=== PATIENT | female | born 1990 | race Caucasian/White ===

== ENCOUNTER 2020-05-22 19:30 | Inpatient (IN) | payer BC ==
[2020-05-22] MEDS ORDERED: HYDROcodone/Acetaminophen 5/325 mg Tablet PO PRN (21:35)
[2020-05-22] MEDS ORDERED: NS / Oxytocin 40 units/1000ml 1,000 ML IV PRN (21:35)
[2020-05-22] MEDS ORDERED: Butorphanol Tartrate 1 MG/ML VIAL SLOW IVP PRN (21:35)
[2020-05-22] MEDS ORDERED: Lidocaine 1% (PF) 30 ML VIAL SC PRN (21:35)
[2020-05-22] MEDS ORDERED: hydrALAZINE 20 MG/ML VIAL SLOW IVP PRN (21:35)
[2020-05-22] MEDS ORDERED: Misoprostol 200 MCG TAB PR PRN (21:35)
[2020-05-22] MEDS ORDERED: Diphenoxylate HCl/Atropine Tablet PO PRN (21:35)
[2020-05-22] MEDS ORDERED: Carboprost 250 MCG/ML AMP IM PRN (21:35)
[2020-05-22] MEDS ORDERED: Ondansetron PF 4 MG/2 ML Vial IVP PRN (21:35)
[2020-05-22] MEDS ORDERED: Methylergonovine 0.2 MG/ML VIAL IM PRN (21:35)
[2020-05-22] MEDS ORDERED: Acetaminophen 500 MG TAB PO PRN (21:35)
[2020-05-22] MEDS ORDERED: Zolpidem Tartrate 5 MG TAB PO PRN (21:35)
[2020-05-22] MEDS ORDERED: Ibuprofen 800 MG TAB PO PRN (21:35)
[2020-05-22] MEDS ORDERED: Promethazine HCl 25 MG/ML VIAL IM PRN (21:35)
[2020-05-22 22:01] VITALS: BMI 38.8
[2020-05-22] MEDS ORDERED: Misoprostol 100 MCG TAB ONE (22:36)
[2020-05-22] MEDS: Misoprostol 100 MCG TAB VAG SCH (23:01)
[2020-05-22 23:16] LABS: Hemoglobin 12.7 g/dL (12.0-15.5); Mean Corpuscular HGB CONC 33.7 g/dL (32.0-36.0); Mean Corpuscular Hemoglobin 28.9 pg (27.0-33.0); Mean Corpuscular Volume 85.9 fl (81.6-98.3); Mean Platelet Volume 11.3 fl (7.4-10.4); Platelet Count 195 10x3/uL (150-450); RBC Distribution Width 14.2 % (11.5-14.5); Red Blood Cell (RBC) Count 4.39 10x6/uL (3.90-5.03); White Blood Cell (WBC) Count 14.7 10x3/uL (3.5-10.5)
[2020-05-22 23:23] LABS: Hep B Surf Ag Non-Reactive S/CO (NonReactive)
[2020-05-22 23:24] LABS: Syphilis Antibody Nonreactive (Nonreactive); Syphilis Antibody Index 0.03 S/CO (<1.00 Non-Reactive)
[2020-05-23 02:51] LABS: Actual Bicarbonate (HCO3a) 15.5 mEq/L (22-28); Base Excess (BEa) -6.9 mEq/L (-2.0 to +3.0); CO2 Tension 23.6 mmHg (35.0-45.0); Calcium, Ionized (arterial) 1.22 mmol/L (1.12-1.30); Hemoglobin (Hb) 13.1 g/dL (12.0-16.0); O2 Tension (PaO2), arterial 86.6 mmHg (80.0-100.0); Potassium - ABG Lab 3.9 mmol/L (3.70-5.30); Puncture Site RRA; pH, Arterial 7.43 (7.35-7.45)
[2020-05-23 04:23] LABS: ALT (SGPT) 21 U/L (8-55); AST (SGOT) 20 U/L (5-34); Albumin 3.6 g/dL (3.5-5.0); Alkaline Phosphatase 159 U/L (40-110); Anion Gap 17 mmol/L (10-20); BUN (Urea Nitrogen) 9 mg/dL (7.0-18.7); Bilirubin, Total 0.2 mg/dL (0.2-1.2); Calc. Creatinine Clearance 164 mL/min (70-130); Calcium 9.1 mg/dL (7.8-10.44); Carbon Dioxide 19 mmol/L (22-29); Chloride 103 mmol/L (98-107); Globulin 2.4 g/dL (2.4-3.5); Glucose 169 mg/dL (70-105); Potassium 4.1 mmol/L (3.5-5.1); Sodium 135 mmol/L (136-145)
[2020-05-23] MEDS ORDERED: NS w/ Oxytocin 30 units 500 ML ONE (08:14)
[2020-05-23] MEDS ORDERED: Fentanyl 4 mcg/Bup 0.1% Cadd 100 ML ONE ×2 (12:43→21:06)
[2020-05-23] MEDS ORDERED: Ondansetron PF 4 MG/2 ML Vial IVP PRN (13:23)
[2020-05-23] MEDS ORDERED: diphenhydrAMINE 50 MG/ML VIAL IVP PRN (13:23)
[2020-05-23] MEDS ORDERED: Promethazine HCl 25 MG/ML VIAL IM PRN (13:23)
[2020-05-23] MEDS ORDERED: Lactated Ringer's 500 ML IV PRN (13:23)
[2020-05-23] MEDS ORDERED: Acetaminophen 325 MG TAB PO PRN (13:23)
[2020-05-23] MEDS ORDERED: Naloxone HCl 0.4 mg/ml Vial IVP PRN ×2 (13:23)
[2020-05-23] MEDS ORDERED: Fentanyl 4 mcg/Bupivacaine 0.1% Cassette 100 ML EPIDURAL SCH (13:30)
[2020-05-23] MEDS ORDERED: Communication Order-Pharmacy FS SCH (13:30)
[2020-05-23] MEDS ORDERED: NS w/ Oxytocin 30 units 500 ML IVPB PRN (13:39)
[2020-05-23] MEDS ORDERED: ePHEDrine Sulfate 50 MG/10 ML VIAL SLOW IVP PRN (13:42)
[2020-05-23 13:55] LABS: SARS-CoV-2 PCR by NAA Not Detected (NotDetected)
[2020-05-23] MEDS: Lactated Ringer's 1,000 ML IV SCH (20:53)
[2020-05-24] MEDS ORDERED: Lanolin Ointment 7 GM TUBE TOP PRN (02:16)
[2020-05-24] MEDS ORDERED: Zolpidem Tartrate 5 MG TAB PO PRN (02:16)
[2020-05-24] MEDS ORDERED: Bisacodyl 10 MG SUPP PR PRN (02:16)
[2020-05-24] MEDS ORDERED: Promethazine HCl 25 MG/ML VIAL IM PRN (02:16)
[2020-05-24] MEDS ORDERED: NS / Oxytocin 40 units/1000ml 1,000 ML IV SCH (02:16)
[2020-05-24] MEDS ORDERED: Benzocaine-Menthol 82.5 ML CAN TOP PRN (02:16)
[2020-05-24] MEDS ORDERED: Ondansetron PF 4 MG/2 ML Vial IVP PRN (02:16)
[2020-05-24] MEDS ORDERED: diphenhydrAMINE 25 MG CAP PO PRN (02:16)
[2020-05-24] MEDS ORDERED: Preparation H Ointment 28 GM TUBE PR PRN (02:16)
[2020-05-24] MEDS ORDERED: HYDROcodone/Acetaminophen 5/325 mg Tablet PO PRN ×2 (02:16)
[2020-05-24] MEDS ORDERED: hydrALAZINE 20 MG/ML VIAL SLOW IVP PRN (02:16)
[2020-05-24] MEDS ORDERED: Milk Of Magnesia 30 ML UDCUP PO PRN (02:16)
[2020-05-24] MEDS: Ibuprofen 800 MG TAB PO SCH ×3 (04:32→22:09)
[2020-05-24] MEDS: Misoprostol 100 MCG TAB VAG SCH ×3 (08:33→08:35)
[2020-05-24] MEDS: Lactated Ringer's 1,000 ML IV SCH (08:35)
[2020-05-24] MEDS ORDERED: Adacel (T-DAP) 0.5 ML SYRINGE IM ONE (09:00)
[2020-05-24] MEDS: Prenatal Vitamin 1 TAB PO SCH (09:10)
[2020-05-24] MEDS: Docusate Calcium (SURFAK) 240 MG CAP PO SCH ×2 (09:10→22:09)
[2020-05-24] MEDS ORDERED: Calcium Carbonate 500 MG ChewTAB PO PRN (20:26)
[2020-05-25] MEDS: Ibuprofen 800 MG TAB PO SCH ×2 (06:10→14:05)
[2020-05-25] MEDS: Docusate Calcium (SURFAK) 240 MG CAP PO SCH (09:03)
[2020-05-25] MEDS: Prenatal Vitamin 1 TAB PO SCH (09:03)
[2020-05-25 09:59] VITALS: BP 128/58; TEMP 98.2
== END 2020-05-25 16:05 | disposition home or self-care (01) | DRG 807 ==
LOC: CSHLD 21:15 → CSHPP 05-24 03:54
PROVIDERS: ADMIT Student in an Organized Health Care Education/Training Program; ATTEND Student in an Organized Health Care Education/Training Program
PROC: 3E0P7VZ Introduction of Hormone into Female Reproductive, Via Natural or Artificial Opening (ICD-10-PCS; 2020-05-23)
PROC: 0U7C7ZZ Dilation of Cervix, Via Natural or Artificial Opening (ICD-10-PCS; 2020-05-23)
PROC: 10907ZC Drainage of Amniotic Fluid, Therapeutic from Products of Conception, Via Natural or Artificial Opening (ICD-10-PCS; 2020-05-23)
PROC: 10E0XZZ Delivery of Products of Conception, External Approach (ICD-10-PCS; principal; 2020-05-24)
PROC: 0KQM0ZZ Repair Perineum Muscle, Open Approach (ICD-10-PCS; 2020-05-24)
DX: O10.92 Unspecified pre-existing hypertension complicating childbirth (principal); Z37.0 Single live birth; Z3A.39 39 weeks gestation of pregnancy; O76 Abnormality in fetal heart rate and rhythm complicating labor and delivery; Z20.822 Contact with and (suspected) exposure to COVID-19; O70.1 Second degree perineal laceration during delivery; Z88.0 Allergy status to penicillin; Z91.018 Allergy to other foods
CPT/HCPCS: 36415; 36600; 51702; 71045; 80053; 82805; 83880; 85027; 86780; 86850; 86900; 86901; 87340; 87635; 93005; 93010; 93970; J2405; J2590; U0003; U0005

== ENCOUNTER 2020-05-31 20:03 | Inpatient (IN) | payer BC ==
[2020-05-31 21:02] LABS: #Basophils 0.1 10x3/uL (0.0-0.2); #Eosinphils 0.2 10x3/uL (0.0-0.5); #Monocytes 1.3 10x3/uL (0.0-1.1); #Neutrophils 12.3 10x3/uL (1.5-8.4); %Basophils 0.4 % (0.0-2.0); %Eosinophils 1.1 % (0.0-6.0); %Lymphocytes 10.6 % (18.0-47.0); %Monocytes 7.9 % (0.0-10.0); %Neutrophils 76.3 % (40.0-75.0); Mean Corpuscular HGB CONC 33.5 g/dL (32.0-36.0); Mean Corpuscular Hemoglobin 28.7 pg (27.0-33.0); Mean Corpuscular Volume 85.7 fl (81.6-98.3); Mean Platelet Volume 10.2 fl (7.4-10.4); Platelet Count 344 10x3/uL (150-450); RBC Distribution Width 13.7 % (11.5-14.5); Red Blood Cell (RBC) Count 4.53 10x6/uL (3.90-5.03); White Blood Cell (WBC) Count 16.1 10x3/uL (3.5-10.5)
[2020-05-31] MEDS ORDERED: Acetaminophen 500 MG TAB ONE (21:05)
[2020-05-31 21:17] LABS: ALT (SGPT) 56 U/L (8-55); AST (SGOT) 29 U/L (5-34); Albumin 4.1 g/dL (3.5-5.0); Alkaline Phosphatase 91 U/L (40-110); Anion Gap 17 mmol/L (10-20); BUN (Urea Nitrogen) 14 mg/dL (7.0-18.7); Bilirubin, Total 0.3 mg/dL (0.2-1.2); Calc. Creatinine Clearance 0 mL/min (70-130); Calcium 9.2 mg/dL (7.8-10.44); Carbon Dioxide 19 mmol/L (22-29); Chloride 103 mmol/L (98-107); Globulin 3.4 g/dL (2.4-3.5); Glucose 81 mg/dL (70-105); Potassium 4.2 mmol/L (3.5-5.1); Protein, Total 7.5 g/dL (6.0-8.3); Sodium 135 mmol/L (136-145)
[2020-05-31 22:20] LABS: SARS-CoV-2 NAA Rapid Test Not Detected (NotDetected)
[2020-05-31 23:06] LABS: Bilirubin Neg (Negative); Blood, Urine 150 (Negative); Clarity Clear (Clear); Glucose, Urine (Dipstick) Normal (Negative); Ketone, Urine Negative (Negative); Leukocyte 100 (Negative); Nitrite Negative (Negative); Protein, Urine (Dipstick) Negative (Neg-Trace); Specific Gravity, Urine 1.005 (1.002-1.036); Urobilinogen Normal mg/dL (Less than 2)
[2020-05-31] MEDS ORDERED: Gentamicin 80 MG/100 ML BAG ONE (23:20)
[2020-05-31 23:21] LABS: Bacteria/HPF 2+ HPF (None Seen); Mucous/LPF Rare LPF (<2+); WBC/HPF 0-3 HPF (0-3)
[2020-06-01] MEDS: Gentamicin Sulfate 80 MG in Premix Bag 1 BAG IVPB SCH ×2 (01:18→01:22)
[2020-06-01] MEDS ORDERED: Bisacodyl 10 MG SUPP PR PRN (01:56)
[2020-06-01] MEDS ORDERED: Ondansetron PF 4 MG/2 ML Vial IVP PRN (01:56)
[2020-06-01] MEDS ORDERED: Milk Of Magnesia 30 ML UDCUP PO PRN (01:56)
[2020-06-01] MEDS ORDERED: Ibuprofen 800 MG TAB PO PRN (01:56)
[2020-06-01] MEDS ORDERED: diphenhydrAMINE 25 MG CAP PO PRN (01:56)
[2020-06-01 02:18] VITALS: BMI 38.8
[2020-06-01] MEDS ORDERED: Ampicillin 2 GM in Sodium Chloride 0.9% 100 ML IVPB SCH (04:00)
[2020-06-01] MEDS: Acetaminophen 325 MG TAB PO PRN ×2 (05:30→16:33)
[2020-06-01 06:14] LABS: #Basophils 0.1 10x3/uL (0.0-0.2); #Eosinphils 0.1 10x3/uL (0.0-0.5); #Monocytes 1.2 10x3/uL (0.0-1.1); #Neutrophils 10.2 10x3/uL (1.5-8.4); %Basophils 0.4 % (0.0-2.0); %Eosinophils 0.9 % (0.0-6.0); %Lymphocytes 14.8 % (18.0-47.0); %Monocytes 8.3 % (0.0-10.0); %Neutrophils 72.5 % (40.0-75.0); Hemoglobin 12.6 g/dL (12.0-15.5); Mean Corpuscular HGB CONC 32.3 g/dL (32.0-36.0); Mean Corpuscular Hemoglobin 28.3 pg (27.0-33.0); Mean Corpuscular Volume 87.6 fl (81.6-98.3); Mean Platelet Volume 9.9 fl (7.4-10.4); Platelet Count 319 10x3/uL (150-450); Red Blood Cell (RBC) Count 4.45 10x6/uL (3.90-5.03)
[2020-06-01] MEDS: Ampicillin 2 GM in Sodium Chloride 0.9% 100 ML IVPB SCH ×2 (08:33→14:13)
[2020-06-01] MEDS ORDERED: Docusate Calcium (SURFAK) 240 MG CAP PO SCH (09:00)
[2020-06-01] MEDS: Clindamycin/D5W 900 MG in Premix Bag 1 BAG IVPB SCH ×2 (09:11→16:26)
[2020-06-01] MEDS ORDERED: Sodium Chloride 0.9% 1,000 ML IV SCH (15:00)
[2020-06-01 16:28] VITALS: BP 135/75; TEMP 100.3
[2020-06-01] MEDS ORDERED: Mineral Oil ENEMA PR SCH (19:30)
== END 2020-06-01 20:30 | disposition home or self-care (01) | DRG 776 ==
LOC: CSHERS 20:03 → CSHPP 06-01 00:35
PROVIDERS: ADMIT Obstetrics & Gynecology; ATTEND Obstetrics & Gynecology
DX: O98.53 Other viral diseases complicating the puerperium (principal); N13.30 Unspecified hydronephrosis; Z20.822 Contact with and (suspected) exposure to COVID-19; O10.93 Unspecified pre-existing hypertension complicating the puerperium; O99.893 Other specified diseases and conditions complicating puerperium; Z88.0 Allergy status to penicillin; Z91.018 Allergy to other foods
CPT/HCPCS: 0240U; 36415; 71045; 74177; 76856; 80053; 81003; 81015; 83605; 84145; 85025; 86850; 86900; 86901; 87040; 87086; 87633; 93005; 96365; J0290; J1580; J3490